=== PATIENT | male | born 1965 | race Native Hawaiian/Other Pacific Islander ===

== ENCOUNTER 2017-08-30 03:37 | Day surgery (SDC) | payer SELFPAY ==
[~2017-08-30] VITALS: Ht 152.4 cm; Wt 83.9 kg
[2017-08-30] MEDS ORDERED: DEXTROSE 50% 50 ML DISP.SYRIN IV PRN (04:30)
[2017-08-30] MEDS ORDERED: CEFAZOLIN 2 G in IV DEXTROSE 5% 100 ML IV ONE (04:30)
[2017-08-30] MEDS ORDERED: IV 1/2NS 1000 ML 1,000 ML IV PRN (04:30)
[2017-08-30] MEDS ORDERED: INSULIN REGULAR, HUMAN 300 UNIT/3 ML VIAL SQ PRN (04:30)
[2017-08-30] MEDS ORDERED: DESMOPRESSIN INJ 20 MCG in IV NORMAL SALINE 50 ML IV ONE (04:30)
[2017-08-30] MEDS ORDERED: IV LACTATED RINGERS SOLUTION 1,000 ML IV PRN (04:30)
[2017-08-30] MEDS ORDERED: MORPHINE SULFATE 2 MG/1 ML DISP.SYRIN IV PRN (04:45)
[2017-08-30] MEDS ORDERED: HYDROMORPHONE 1 MG/1 ML DISP.SYRIN IV PRN (04:45)
[2017-08-30] MEDS ORDERED: DOCUSATE SODIUM 100 MG CAPSULE PO SCH (04:45)
[2017-08-30] MEDS ORDERED: HYDROCODONE/APAP 5-325MG TABLET PO PRN (04:45)
[2017-08-30] MEDS ORDERED: FLUOCINONIDE 0.05% OINT 15 GM TUBE TP SCH (04:45)
[2017-08-30] MEDS ORDERED: TEMAZEPAM 15 MG CAPSULE PO PRN (04:45)
[2017-08-30] MEDS ORDERED: ACETAMINOPHEN 325 MG TABLET PO PRN (04:45)
[2017-08-30] MEDS ORDERED: ONDANSETRON 4 MG/2 ML VIAL IV PRN (04:45)
[2017-08-30] MEDS ORDERED: BLOOD SUGAR DIAGNOSTIC 1 EACH STRIP VI SCH (06:00)
[2017-08-30] MEDS ORDERED: PANTOPRAZOLE SODIUM 40 MG VIAL IV SCH (09:00)
[2017-08-31 18:32] LABS: HEMOGLOBIN 11.4 G/DL (14.0-18.0); MEAN CORPUSCULAR HGB CONC 33 g/dL (32.0-37.0); PLATELET COUNT (AUTO) 278 K/UL (150-450); RED BLOOD CELL COUNT(AUTO) 3.58 MIL/UL (4.7-6.1); WHITE BLOOD COUNT (AUTO) 9.3 K/UL (4.0-11.2)
[2017-08-31 18:33] LABS: LYMPHOCYTES % (AUTO) 6.8 % (20.5-51.5); NEUTROPHILS % (AUTO) 86.2 % (38.5-71.5)
[2017-08-31 18:34] LABS: LYMPHOCYTES # (AUTO) 0.6 K/UL (0.8-4.8); MONOCYTES # (AUTO) 0.7 K/UL (0.1-1.30)
[2017-08-31 18:38] LABS: ABG SITE LEFT ARM
== END 2017-08-30 05:13 | disposition home or self-care (01) ==
LOC: DS 03:37 → MEDSURG1 04:24 → DS 05:13
PROVIDERS: ATTEND Internal Medicine Hematology & Oncology
DX: Z75.3 Unavailability and inaccessibility of health-care facilities (principal)
CPT/HCPCS: 36415; 36600; 85025; J0690; J1815; J2597; J3490; J7060

== ENCOUNTER 2018-11-09 08:00 | Day surgery (SDC) | payer SELFPAY ==
[2018-11-09 06:59] LABS: *BILIRUBIN,URIN NEGATIVE (NEGATIVE); *BLOOD, URINE NEGATIVE (NEGATIVE); *CLARITY,URINE CLEAR (CLEAR); *COLOR,URINE YELLOW (YELLOW); *KETONES,URINE NEGATIVE (NEGATIVE); *UROBILINOGEN,URINE 0.2 E.U./dl (NORMAL); LEUKOCYTE ESTERASE ,URINE NEGATIVE (NEGATIVE); NITRITE, URINE NEGATIVE (NEGATIVE); UGLUCOSE NEGATIVE (NEGATIVE)
[2018-11-09 07:26] LABS: BASOPHILS # (AUTO) 0.1 K/uL (0.0-8.0); BASOPHILS % (AUTO) 0.9 % (0.0-2.0); EOSINOPHILS # (AUTO) 0.2 K/uL (0.0-0.7); EOSINOPHILS % (AUTO) 3.5 % (0.0-7.0); HEMATOCRIT 42.5 % (36.7-47.1); HEMOGLOBIN 14.2 g/dL (12.5-16.3); LYMPHOCYTES # (AUTO) 1.1 K/uL (20.0-40.0); LYMPHOCYTES % (AUTO) 19.6 % (20.5-51.5); MEAN CORPUSCULAR HEMOGLOBIN 31.8 uug (23.8-33.4); MEAN CORPUSCULAR HGB CONC 33 g/dL (32.5-36.3); MEAN CORPUSCULAR VOLUME 95.2 fL (73.0-96.2); MONOCYTES # (AUTO) 0.7 K/uL (2.0-10.0); MONOCYTES % (AUTO) 12.2 % (0.0-11.0); NEUTROPHILS # (AUTO) 3.7 K/uL (1.8-8.9); NEUTROPHILS % (AUTO) 63.8 % (38.5-71.5); PLATELET COUNT (AUTO) 195 K/uL (152-348); RED BLOOD CELL COUNT(AUTO) 4.46 MIL/uL (4.06-5.63); WHITE BLOOD COUNT (AUTO) 5.7 K/uL (3.6-10.2)
== END 2018-11-09 08:10 | disposition home or self-care (01) ==
LOC: CANPRESDC → DS 08:00 → EDSEX 08:00 → DS 08:10
PROVIDERS: ATTEND Internal Medicine
DX: Z75.3 Unavailability and inaccessibility of health-care facilities (principal)
CPT/HCPCS: 36600; 70030-TC; J2785